=== PATIENT | female | born 1995 | race Caucasian/White ===

== ENCOUNTER 2016-09-11 14:18 | Emergency (ER) | payer OTHER ==
[~2016-09-11] VITALS: Ht 157.5 cm; Wt 46.0 kg
[~2016-09-11 14:18] MED LIST: MULTCHW27 PO; ORTHTAB3 PO; VITA250L PO
[2016-09-11 14:23] VITALS: BP 128/72; PULSE 92; RESP 16; TEMP 98.2; O2SAT 99
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
[2016-09-11] MEDS ORDERED: NAPR500T PO (16:20)
[2016-09-11] MEDS ORDERED: CYCL5TAB PO (16:20)
[2016-09-11 16:31] VITALS: BP 116/58; PULSE 71; RESP 18; O2SAT 99
== END 2016-09-11 17:00 | disposition home or self-care (01) ==
LOC: NEPC 14:18
DX: S09.90XA Unspecified injury of head, initial encounter (principal); S09.93XA Unspecified injury of face, initial encounter; S60.212A Contusion of left wrist, initial encounter; S16.1XXA Strain of muscle, fascia and tendon at neck level, initial encounter; V49.49XA Driver injured in collision with other motor vehicles in traffic accident, initial encounter; Y92.410 Unspecified street and highway as the place of occurrence of the external cause
CPT/HCPCS: 70450; 70486; 72125; 73100; 99285; L0150

== ENCOUNTER → 2017-06-25 | Outpatient (CLI) | payer OTHER ==
[~2017-06-25] MED LIST changes: +CYCL5TAB PO; +NAPR500T2 PO
[2017-06-25 12:15] LABS: AUTOMATED NEUTROPHIL # 2.7 TH/MM3 (1.8-7.7); BASOPHIL % 0.5 % (0.0-2.0); EOSINOPHIL % 0.4 % (0.0-4.0); HEMATOCRIT 39.9 % (35.0-46.0); HEMOGLOBIN 13.4 GM/DL (11.6-15.3); LYMPH % 36.2 % (9.0-44.0); LYMPHOCYTE # 1.8 TH/MM3 (1.0-4.8); MEAN CELL VOLUME 88.3 FL (80.0-100.0); MEAN CORPUSCULAR HEMOGLOBIN 29.6 PG (27.0-34.0); MEAN CORPUSCULAR HGB CONC 33.5 % (32.0-36.0); MEAN PLATELET VOLUME 7.9 FL (7.0-11.0); MONO % 7.4 % (0.0-8.0); MONOCYTE # 0.4 TH/MM3 (0-0.9); NEUT % 55.5 % (16.0-70.0); PLATELET COUNT 325 TH/MM3 (150-450); RED BLOOD COUNT 4.52 MIL/MM3 (4.00-5.30); RED CELL DISTRIBUTION WIDTH 14.2 % (11.6-17.2); WHITE BLOOD COUNT 4.9 TH/MM3 (4.0-11.0)
[2017-06-25 12:40] LABS: ALBUMIN 3.6 GM/DL (3.4-5.0); AST (GOT) 17 U/L (15-37); BICARBONATE 28.2 MEQ/L (21.0-32.0); BLOOD UREA NITROGEN 12 MG/DL (7-18); CALCIUM 8.9 MG/DL (8.5-10.1); CHLORIDE 105 MEQ/L (98-107); CREATININE 0.63 MG/DL (0.50-1.00); GLOMERULAR FILTRATION RATE 119 ML/MIN (>89); GLUCOSE,FASTING 78 MG/DL (74-99); SODIUM (NA) 139 MEQ/L (136-145)
[2017-06-25 12:42] LABS: ALT (GPT) 20 U/L (10-53)
[2017-06-25 12:44] LABS: ALKALINE PHOSPHATASE 68 U/L (45-117); TOTAL BILIRUBIN ADULT 0.8 MG/DL (0.2-1.0); TOTAL PROTEIN 7.1 GM/DL (6.4-8.2)
[2017-06-28 03:52] LABS: VARICELLA ZOSTER AB IGM 0.55 (NEGATIVE)
== END ==
LOC: CLAB 11:33
PROVIDERS: ATTEND Family Medicine
DX: Z00.00 Encounter for general adult medical examination without abnormal findings (principal); R76.0 Raised antibody titer
CPT/HCPCS: 36415; 80053; 85025; 86317; 86735; 86762; 86787